=== PATIENT | female | born 1935 | race Caucasian/White ===

== ENCOUNTER 2017-01-17 19:01 | Inpatient (IN) ==
[~2017-01-17 19:01] MED LIST: ENOXAPARIN 40 MG/0.4 ML SYRINGE SUBCUT SCH
[2017-01-17] MEDS ORDERED: ALBUTEROL NEB SOLN 5 MG/ML 20 ML/BOTTLE CONT NEB STA (19:47)
[2017-01-17] MEDS ORDERED: FUROSEMIDE 40 MG/4 ML VIAL IV STA (19:47)
[2017-01-17] MEDS ORDERED: ONDANSETRON 4 MG/2 ML VIAL IV STA (19:47)
[2017-01-17] MEDS ORDERED: DIPH/TET/ACEL PERT BOOSTER VACCINE 0.5 ML VIAL IM ONE (19:47)
[2017-01-17] MEDS ORDERED: LIDOCAINE/EPINEPHR/TETRACAINE 3 ML SYRINGE TOP ONE (19:49)
[2017-01-17] MEDS ORDERED: LIDOCAINE/EPINEPHR/TETRACAINE 3 ML SYRINGE TOP STA (19:55)
[2017-01-17] MEDS ORDERED: DIPHTHERIA/TETANUS ADULT VACCINE 0.5 ML VIAL IM ONE (20:01)
[2017-01-17] MEDS ORDERED: SODIUM CHLORIDE 0.9% 100 ML IV ONE (20:01)
[2017-01-17] MEDS ORDERED: ceFAZolin 1,000 MG VIAL ONE (20:01)
[2017-01-17] MEDS ORDERED: FUROSEMIDE 20 MG/2 ML VIAL ONE (20:01)
[2017-01-17] MEDS ORDERED: FUROSEMIDE 40 MG/4 ML VIAL ONE (20:01)
[2017-01-17] MEDS ORDERED: ONDANSETRON 4 MG/2 ML VIAL ONE (20:01)
[2017-01-17] MEDS ORDERED: ALBUTEROL 2.5 MG/3 ML NEB RESP TX ONE (20:06)
--- NOTE | 2017-01-17 20:11 | Emergency Department Note ---
Silva Kat Gwan, am scribing for, and in the presence of, Quinn Savage MD 20 :03. Hussein Kat Charles R, MD, personally performed the services described in this documentation, ascribed by Harshil Ascencio in my presence, and it is both accurate and complete . Arrival - Arrival Chief Complaint: Fall ED Nursing Triage Note: pt brought via ems from [facility] at [facility] s /p fall. ems reports hematoma/laceration to back of head. no LOC. hx chf, dementia Mode of Arrival: Stretcher Limitations: Altered Mental Status Source: Family (Daughter ), Old Records Reviewed, RN Notes Reviewed Time Seen by Provider: 01/17/17 19:34 - History of Present Illness HPI Narrative: Patient is a 81 y/o female, with a hx of dementia and CHF, who presents to the ED via EMS with C-collar in place for further evaluation s/p fall today. Patient is a resident at [facility] in [facility] due to dementia. Patient is a poor historian and is accompanied by her daughter. Daughter stated that staff is unsure how or why the pt fell, but did state that the patient caused injury to the back of her head s/p fall. Daughter confirmed that pt fell 1 month ago and caused injury to her ribs and that her PCP recently started the pt on 3 new medications. Daughter continued to note that since the start of her new medications. Daughter denies that pt is currently on any blood thinners, that she had any periods of LOC or that she is currently being treated for her CHF. During exam, pt had active non productive cough and audible wheezing. Patient denies being in any pain while in ED. No other problems/complaints reported in ED. Onset (ago): hour(s) Consistency: constant Severity: moderate Allergies/Adverse Reactions: Allergies Allergy/AdvReac Type Severity Reaction Status Date / Time codeine Allergy Verified 01/03/17 15:35 sulfamethoxazole Allergy Verified 01/03/17 15:35 [From Bactrim] trimethoprim [From Bactrim] Allergy Verified 01/03/17 15:35 Home Medications: Home Medications Medication Instructions Recorded Confirmed Type Acidoph/L.bulg/Bif.b/S.thermop 1 each PO BID 01/03/17 01/17/17 History [Bacid Caplet] Cetirizine HCl [ZyrTEC Cap] 10 mg PO DAILY 01/03/17 01/17/17 History Diphenoxylate/Atrop 2.5-0.025 1 tablet PO BID PRN 01/03/17 01/17/17 History [Lomotil Tab] Galantamine HBr [Galantamine Tab] 4 mg PO BID 01/03/17 01/17/17 History HYDROcodone/ACETAMIN 5-325 [Delight 0.5 tablet PO Q4H PRN 01/03/17 01/17/17 History 5-325] Nebivolol [Bystolic] 5 mg PO DAILY 01/03/17 01/17/17 History Nortriptyline [Pamelor] 25 mg PO BEDTIME 01/03/17 01/17/17 History clonazePAM TAB [KlonoPIN] 0.5 mg PO BID 01/03/17 01/17/17 History clonazePAM [Klonopin] 0.5 mg PO DAILY PRN 01/03/17 01/17/17 History Albuterol/Ipratropium Neb [Duoneb] 3 ml RESP TX RT Q12H 01/17/17 01/17/17 History Divalproex [Depakote] 250 mg PO BID 01/17/17 01/17/17 History Furosemide [Furosemide] 10 mg PO QOTHER DAY 01/17/17 01/17/17 History Gabapentin Cap/Tab [Neurontin 300 mg PO TID 01/17/17 01/17/17 History Cap/Tab] Levofloxacin Tab [Levaquin Tab] 500 mg PO DAILY 01/17/17 01/17/17 History OLANZapine [Olanzapine] 5 mg PO BID 01/17/17 01/17/17 History Zaleplon [Sonata] 5 mg PO BEDTIME PRN 01/17/17 01/17/17 History guaiFENesin ER TAB [Mucinex] 600 mg PO BID 01/17/17 01/17/17 History Review of System - Review of System 12 point system: reviewed and no additional remarkable complaints except as stated - Review of System Head/Ears/Nose/Throat: Present: see HPI, other (cut to the back of her head per daughter ) Respiratory: Present: as per HPI, cough, wheezing Cardiovascular: Absent: chest pain, palpitations Musculoskeletal: Absent: arm pain, back pain, neck pain Medical,Surgical,& Family Hx - Medical History Cardio: History of: CHF, Hypertension, Pacemaker (pm/icd) Psychological: History of: Anxiety Disorders, Depression No history of: Behavior Problems, Violent Behavior, Psychiatric Problems Neurology: History of: Dementia HEENT: History of: Eye Problem (macular degeneration) Endocrine: History of: Dyslipidemia Rheumatology: History of;: Rheumatoid Arthritis Respiratory: History of: Asthma Genitourinary: History of: Recurring Urinary Tract Infections Gastrointestinal: History of: Diverticulitis/ Diverticulosis Musculoskeletal: History of: Back/Neck Problems, Musculoskeletal Problems Reproductive: History of: Reproductive Problems (enlarged left ovary) Other: History of: Anesthesia Reactions (hard to awaken) - Surgical History Cardiac Surgeries: Sugical HX of: Internal Defibrillator Reproductive Surgeries: Surgical HX of;: Gynecologic Surgery, Tubal Ligation Orthopedic Surgeries: Surgical HX of;: Implanted Devices (pm/icd) - Family History Family History: Reports;: Family Cancer (mother, breast ca, sister breast ca), Family Diabetes (brother, mother), Family Heart Disease, Family Stroke (father) - Social History Smoking Status: Former smoker Frequency of Alcohol Use: None Type of Drug Use: None Exam Vital Signs: Vital Signs Temperature 97.6 F 01/17/17 19:01 Pulse Rate 65 01/17/17 20:17 Respiratory Rate 25 H 01/17/17 20:17 Blood Pressure 156/56 01/17/17 19:01 O2 Sat by Pulse Oximetry 95 01/17/17 20:17 - General General appearance: alert, in no apparent distress, other (Patient is in no acute distress. ) - Head Head exam: Absent: atraumatic (3cm clean laceration note to the back of head. ) - Eye Eye exam: Present: normal appearance, PERRL, EOMI - ENT ENT exam: Present: normal oropharynx, mucous membranes moist, TM's normal bilaterally, normal external ear exam - Neck Neck exam: Present: other (Patient ayanna c-collar in place. ) - Chest Chest inspection: Present: symmetric chest wall rise. Absent: tenderness - Respiratory Respiratory exam: Present: rales (Bilaterally), rhonchi (Bilaterally), wheezes, other (Patient has decreased breathe sounds. ) - Cardiovascular Cardiovascular exam: Present: murmur (3/6 systolic injection murmur) - Abdominal Exam Abdominal exam: Present: soft, distention, other (Patient has decreased bowel sounds. ) - Extremities Exam Extremities exam: Present: other (Patient has +3 edema note to bilateral lower extremities. ) - Back Exam Back exam: Present: full ROM. Absent: tenderness - Neurological Exam Neurological exam: Present: alert, CN II-XII intact. Absent: motor sensory deficit - Skin Skin exam: Present: other (Patient has a 3cm clean laceration note the the back of the head. ) Course - Consultations Consultation #1: Hospitalist will admit patient Time: 21:58 Procedures - Laceration Laceration 1 Site: scalp Size (cm): 3 Description: clean Depth: simple, single layer Local Anesthetic: other anesthetic (LET solution ) Pre-repair: wound cleansed Skin layer closed with: other (shadia) Number of sutures: 7 (Wound was closed with 7 shadia ) Results - Labs CBC & BMP: 01/17/17 20:14 01/17/17 20:14 Lab Results: I have reviewed the patients labs Labs: Laboratory Tests 01/17/17 01/17/17 20:14 20:14 WBC 8.7 RBC 4.65 Hgb 13.2 Hct 40.7 Plt Count 319 Urine pH 6.0 Ur Specific Hubbell 1.004 Urine Urobilinogen < 2.0 H Urine Leukocytes Small H Urine RBC <1 Urine WBC 9 Urine WBC Clumps Occasional Ur Squamous Epith Cells Occasional Laboratory Tests 01/17/17 20:14 INR 1.0 PT Patient/Control Mix 10.7 - Diagnostic Findings Procedure: Chest x-ray: report reviewed by me (No acute cardiopulmonary findings. ), CT: report reviewed by me (Head CT: No acute intracranial abnormality. Cervical Spint CT: Multilevel spondylosis. No evidence of traumatic injury. ) Disposition Clinical Impression: Dementia, CHF (congestive heart failure), Hypertension, Major neurocognitive disorder, due to Alzheimer's disease, with behavioral disturbance, mild, Scalp laceration, Fall, Acute dyspnea, Extremity edema, Bronchitis, UTI (urinary tract infection) Case discussed with: patient, patient's family Disposition: Still a Patient Condition: Stable Time of Disposition: 21:58
--- NOTE | 2017-01-17 20:15 | EKG Report ---
Stationary ECG Study [facility] ER Test Date: 01/17/2017 8:13:59 PM Pat Name: KATARZYNA GODWIN Department: Room: Gender: F Fire Technician: SR : 1935 Requested by: Quinn Sorto Order Number: [id number] Reading MD: NATACHA COOMBS Intervals [place] Rate: 66 P: 999 TN: 0 QRS: -1 QRSD: 159 T: 64 QT: 442 QTc: 455 Interpretive Statements SINUS RHYTHM WITH 2ND DEGREE AV BLOCK, MOBITZ TYPE I WITH OCCASIONAL VENTRICULAR PREMATURE COMPLEXES LEFT BUNDLE BRANCH BLOCK Electronically Signed On 01-21-17 06:47:18 CDT by NATACHA COOMBS [email or web address]
--- NOTE | 2017-01-17 20:16 | XRay Report ---
Portable chest Exam date: 01/17/2017 7:47 PM Indication: Shortness of breath, cough Comparison: January 10, 2017 Findings: Cardiomediastinal contours are stable with no change in defibrillator placement. Lungs are clear bilaterally. No acute osseous abnormalities. Visualized upper abdomen demonstrates no acute pathology. Impression: No acute cardiopulmonary findings PROCEDURE INTERPRETED AT [facility] DEPARTMENT OF RADIOLOGY Final Report Signed by: Domenico Salvador
--- NOTE | 2017-01-17 20:19 | CT Report ---
Exam: CT head without intravenous contrast Clinical History: 81 years Female fall with headache Technique: Axial computed tomography images of the head/brain without intravenous contrast Comparison: No relevant comparisons Findings: Brain: Generalized atrophy with mild microangiopathic small vessel ischemic changes and remote left basal ganglia lacunar infarction. Salvador-white matter distinction maintained. No mass effect. No intra or extra-axial hemorrhage. Ventricles: Unremarkable. No ventriculomegaly. Bones/joints: Calvarium is intact Soft tissues: Unremarkable Sinuses: No active paranasal sinus process Mastoid air cells: Unremarkable visualized. Impression: 1. No acute intracranial abnormality PROCEDURE INTERPRETED AT [facility] DEPARTMENT OF RADIOLOGY Final Report Signed by: Domenico Salvador
--- NOTE | 2017-01-17 20:25 | CT Report ---
Exam: CT cervical spine without IV contrast Clinical History: 81 years,Female,fall with neck pain Technique: Axial computed tomography images of the cervical spine without intravenous contrast. Comparison: No relevant prior studies available. Findings: Vertebra: Degenerative retrolisthesis of C5. Slight straightening of the cervical lordosis. No fracture. Disc/spinal Canal/neural foramina: Disc space loss at C4-C7 with endplate spurring and mild multilevel facet arthrosis.. Soft tissues: Unremarkable Thyroid: Symmetric in size and attenuation Lung apices: Well aerated Impression: 1. Multilevel spondylosis. No evidence of traumatic injury PROCEDURE INTERPRETED AT [facility] DEPARTMENT OF RADIOLOGY Final Report Signed by: Domenico Salvador
[2017-01-17 20:55] LABS: Apearance,Urine CLEAR (Clear); Bilirubin,Urine Negative (Negative); Blood, Urine Negative (Negative); Glucose,Urine (UA) Negative (Negative); Ketones,Urine Negative (Negative); Nitrite,Urine Negative (Negative); Protein,Urine Negative; RBC,Urine <1 /HPF (0-4); Squamous Epithelial Cell,Urine Occasional /HPF (0-10); Urine Color Yellow (Yellow); Urine Specific Gravity 1.004 (1.001-1.035); Urine Urobilinogen < 2.0 EU/DL (0.2-1.0); WBC,Urine 9 /HPF (0-6)
[2017-01-17 21:02] LABS: Basophils % 0.5 % (0.0-0.8); Eosinophils # 0.4 10*3/uL (0.0-0.87); Eosinophils % 4.1 % (0.00-10.9); Hematocrit 40.7 VOL% (35.7-47.0); Hemoglobin 13.2 GM/DL (12.0-16.0); Immature Granulocytes % 0.5 %; Immature Granulocytes Absolute 0.04 #; Lymphocytes # 1.9 10*3/uL (1.4-4.0); Lymphocytes % 21.9 % (21.3-54.2); Mean Corpuscular HGB Conc 32.4 GM/DL (32-36); Mean Corpuscular Hemoglobin 28 PG (27-34); Mean Corpuscular Volume 87.5 FL (87-102); Mean Platelet Volume 10.7 FL (9.6-12.0); Monocytes # 0.8 10*3/uL (0.11-0.8); Monocytes % 8.8 % (1.7-12.7); Neutrophils # 5.6 10*3/uL (1.4-7.4); Neutrophils % 64.2 % (38.7-73.9); Platelet Count 319 T/CUMM (130-400); Red Blood Count 4.65 MC/CUMM (3.8-5.5); Red Cell Distribution Width 12.5 % (9.3-17.3); White Blood Count 8.7 T/CUMM (4-12)
[2017-01-17 21:11] LABS: PT Patient Result 10.7 SECS
[2017-01-17 21:32] LABS: Alanine Aminotransferase 16 U/L (13-56); Albumin 3.4 G/DL (3.4-5.0); Alkaline Phosphatase 99 U/L (45-117); Aspartate Amino Transferase 14 U/L (0-37); Bilirubin,Total < 0.39 MG/DL (0.2-1.0); Blood Urea Nitrogen 13 MG/DL (7-18); Calcium 9.1 MG/DL (8.5-10.1); Glucose 119 MG/DL (74-106); Osmolality,Calculated 281.3 MOS/KG (273-304); Potassium 3.7 MMOL/L (3.5-5.1); Sodium 141 MMOL/L (136-145); Total Protein 6.6 G/DL (6.4-8.3); Troponin I Only < 0.015 NG/ML (0.00-0.045)
--- NOTE | 2017-01-17 22:38 | Hospitalist History & Physical ---
Assessment and Plan (1) Major neurocognitive disorder Status: Acute Current Visit: No (2) Dementia Status: Acute Current Visit: Yes (3) Depression, major, recurrent, severe with psychosis Status: Acute Current Visit: No (4) CHF (congestive heart failure) Status: Acute Current Visit: Yes (5) Hypertension Status: Acute Current Visit: Yes (6) Status post placement of other cardiac pacemaker Status: Acute Current Visit: No (7) Major neurocognitive disorder, due to Alzheimer's disease, with behavioral disturbance, mild Status: Acute Current Visit: Yes (8) Scalp laceration Status: Acute Current Visit: Yes (9) Fall Status: Acute Current Visit: Yes (10) Acute dyspnea Status: Acute Current Visit: Yes (11) Extremity edema Status: Acute Current Visit: Yes (12) Bronchitis Status: Acute Assessment and plan: Our plan for this patient will be admitting her to our service. We will continue with all home medications which include antibiotics for her recent pneumonia. I do feel she has a touch of bronchitis still holding the alone. We will schedule her breathing treatments. Give her low-dose steroids. I will continue with the diuresis her BNP is not elevated. Her chest x-ray appears clear. She does have some significant edema bilaterally. When she is been observed and symptomatically improved we will return her back to the [facility]. Current Visit: Yes History of Present Illness Chief complaint: Shortness of breath, status post fall History of present illness: Ms. Laura is a 81 year old female with past medical history significant for dementia, congestive heart failure, defibrillator, asthma and recent pneumonia and urinary tract infection who was in her normal state of health tilt night. Apparently patient is staying at [facility] at the [facility]. She fail were unsure of the situations. It caused some injury to the back of her head she had a laceration that was stapled. She had a fall a month ago with pain to her ribs. Patient was brought to our hospital for further evaluation. Patient had audible wheezing and a nonproductive cough. She had increase in her lower extremity edema. Her BNP is normal and her chest x-ray is normal. Because of her dyspnea I was consulted for admission. Home Medications Medication Instructions Recorded Confirmed Type Acidoph/L.bulg/Bif.b/S.thermop 1 each PO BID 01/03/17 01/17/17 History [Bacid Caplet] Cetirizine HCl [ZyrTEC Cap] 10 mg PO DAILY 01/03/17 01/17/17 History Diphenoxylate/Atrop 2.5-0.025 1 tablet PO BID PRN 01/03/17 01/17/17 History [Lomotil Tab] Galantamine HBr [Galantamine Tab] 4 mg PO BID 01/03/17 01/17/17 History HYDROcodone/ACETAMIN 5-325 [Hendricks 0.5 tablet PO Q4H PRN 01/03/17 01/17/17 History 5-325] Nebivolol [Bystolic] 5 mg PO DAILY 01/03/17 01/17/17 History Nortriptyline [Pamelor] 25 mg PO BEDTIME 01/03/17 01/17/17 History clonazePAM TAB [KlonoPIN] 0.5 mg PO BID 01/03/17 01/17/17 History clonazePAM [Klonopin] 0.5 mg PO DAILY PRN 01/03/17 01/17/17 History Albuterol/Ipratropium Neb [Duoneb] 3 ml RESP TX RT Q12H 01/17/17 01/17/17 History Divalproex [Depakote] 250 mg PO BID 01/17/17 01/17/17 History Furosemide [Furosemide] 10 mg PO QOTHER DAY 01/17/17 01/17/17 History Gabapentin Cap/Tab [Neurontin 300 mg PO TID 01/17/17 01/17/17 History Cap/Tab] Levofloxacin Tab [Levaquin Tab] 500 mg PO DAILY 01/17/17 01/17/17 History OLANZapine [Olanzapine] 5 mg PO BID 01/17/17 01/17/17 History Zaleplon [Sonata] 5 mg PO BEDTIME PRN 01/17/17 01/17/17 History guaiFENesin ER TAB [Mucinex] 600 mg PO BID 01/17/17 01/17/17 History Allergies Allergy/AdvReac Type Severity Reaction Status Date / Time codeine Allergy Verified 01/03/17 15:35 sulfamethoxazole Allergy Verified 01/03/17 15:35 [From Bactrim] trimethoprim [From Bactrim] Allergy Verified 01/03/17 15:35 Medical,Surgical,& Family Hx - Medical History Cardio: History of: CHF, Hypertension, Pacemaker (pm/icd) Psychological: History of: Anxiety Disorders, Depression No history of: Behavior Problems, Violent Behavior, Psychiatric Problems Neurology: History of: Dementia HEENT: History of: Eye Problem (macular degeneration) Endocrine: History of: Dyslipidemia Rheumatology: History of;: Rheumatoid Arthritis Respiratory: History of: Asthma Genitourinary: History of: Recurring Urinary Tract Infections Gastrointestinal: History of: Diverticulitis/ Diverticulosis Musculoskeletal: History of: Back/Neck Problems, Musculoskeletal Problems Reproductive: History of: Reproductive Problems (enlarged left ovary) Other: History of: Anesthesia Reactions (hard to awaken) - Surgical History Cardiac Surgeries: Sugical HX of: Internal Defibrillator Reproductive Surgeries: Surgical HX of;: Gynecologic Surgery, Tubal Ligation Orthopedic Surgeries: Surgical HX of;: Implanted Devices (pm/icd) - Family History Family History: Reports;: Family Cancer (mother, breast ca, sister breast ca), Family Diabetes (brother, mother), Family Heart Disease, Family Stroke (father) - Social History Smoking Status: Former smoker Frequency of Alcohol Use: None Type of Drug Use: None ROS unobtainable: due to mental status Exam - Constitutional Vitals: Period Temp Pulse Resp BP Sys/Hines Pulse Ox Last 24 Hr 97.6 F-97.6 F 65-85 20-25 156-156/56-56 95-95 General appearance: normal weight - Head Head exam: Present: normal inspection - Eye Pupils: Present: constricted - ENT ENT exam: Present: normal exam - Neck Neck exam: Present: normal inspection - Respiratory Respiratory exam: Present: wheezes (Coarse breath sounds), other - Cardiovascular Cardiovascular exam: Present: systolic murmur - GI/Abdominal GI/Abdominal exam: Present: normal bowel sounds - Back Exam Back exam: Present: normal inspection - Neurological Exam Neurological exam: Present: altered - Skin Skin exam: Present: other (Patient has a wound on her right calf) Results - Labs CBC & BMP: 01/17/17 20:14 01/17/17 20:14
[2017-01-17] MEDS ORDERED: ACETAMINOPHEN 325 MG TABLET PO PRN (22:43)
[2017-01-17] MEDS ORDERED: ONDANSETRON 4 MG/2 ML VIAL IV PRN (22:43)
[2017-01-17] MEDS ORDERED: guaiFENesin/DM ER 600-30 MG TABLET PO PRN (22:43)
[2017-01-17] MEDS ORDERED: ALBUTEROL 2.5 MG/3 ML NEB RESP TX PRN (22:43)
[2017-01-17] MEDS ORDERED: clonazePAM 0.5 MG TABLET PO PRN (22:48)
[2017-01-17] MEDS ORDERED: DIPHENOXYLATE/ATROPINE 2.5-0.025 MG TABLET PO PRN (22:48)
[2017-01-17] MEDS ORDERED: ZALEPLON 5 MG CAPSULE PO PRN ×2 (22:48→23:28)
[2017-01-18] MEDS ORDERED: ACETAMINOPHEN 325 MG TABLET PO PRN (01:13)
[2017-01-18] MEDS ORDERED: ZALEPLON 5 MG CAPSULE PO PRN (01:17)
[2017-01-18] MEDS: ALBUTEROL/IPRATROPIUM 3 ML NEB RESP TX SCH ×4 (01:40→19:35)
[2017-01-18] MEDS ORDERED: methylPREDNISolone 4 MG TABLET PO SCH (02:03)
[2017-01-18] MEDS ORDERED: ALBUTEROL/IPRATROPIUM 3 ML NEB RESP TX SCH (07:00)
[2017-01-18] MEDS ORDERED: FUROSEMIDE 20 MG/2 ML VIAL IV SCH ×2 (08:00)
[2017-01-18] MEDS ORDERED: FUROSEMIDE 40 MG/4 ML VIAL IV ONE (08:10)
[2017-01-18] MEDS: PANTOPRAZOLE 40 MG TABLET PO SCH (08:44)
[2017-01-18] MEDS: ENOXAPARIN 40 MG/0.4 ML SYRINGE SUBCUT SCH (08:44)
[2017-01-18] MEDS: CETIRIZINE 10 MG TABLET PO SCH (08:44)
[2017-01-18] MEDS: FUROSEMIDE 40 MG TABLET PO SCH (08:44)
[2017-01-18] MEDS: clonazePAM 0.5 MG TABLET PO SCH ×2 (08:44→20:30)
[2017-01-18] MEDS ORDERED: LEVOFLOXACIN 500 MG TABLET PO SCH ×2 (09:00)
[2017-01-18] MEDS ORDERED: GABAPENTIN 300 MG CAPSULE PO SCH ×2 (09:00)
[2017-01-18] MEDS ORDERED: clonazePAM 0.5 MG TABLET PO SCH (09:00)
[2017-01-18] MEDS ORDERED: CETIRIZINE 10 MG TABLET PO SCH (09:00)
[2017-01-18] MEDS ORDERED: DIVALPROEX 250 MG TABLET PO SCH ×2 (09:00)
[2017-01-18] MEDS ORDERED: LACTOBACILLUS ACIDOPHILUS/BULGARICUS CAPLET PO SCH ×2 (09:00)
[2017-01-18] MEDS ORDERED: GALANTAMINE 4 MG TABLET PO SCH ×2 (09:00)
[2017-01-18] MEDS ORDERED: OLANZapine 5 MG TABLET PO SCH ×2 (09:00)
[2017-01-18] MEDS: NEBIVOLOL 5 MG TABLET PO SCH (09:20)
[2017-01-18] MEDS ORDERED: SKIN HEALING OINT (AQUAPHOR) 50 GM TUBE TOP PRN (10:25)
--- NOTE | 2017-01-18 11:32 | Hospitalist Progress Note ---
Assessment and Plan (1) Major neurocognitive disorder Status: Acute Assessment and plan: 1)fall- scalp lac addressed in ER. CT head and neck ok. 2)dementia with psychosis and wandering- seeking placement at [facility] or swing bed. 3)bronchitis- CXR clear, complete antibiotics for pneumonia. on steroids at low doses and nebs. 4)extremity edema- lasix po today. reassess tomorrow. Current Visit: No (2) Dementia Status: Acute Current Visit: Yes (3) Depression, major, recurrent, severe with psychosis Status: Acute Current Visit: No (4) Scalp laceration Status: Acute Current Visit: Yes (5) Fall Status: Acute Current Visit: Yes (6) Extremity edema Status: Acute Current Visit: Yes (7) Bronchitis Status: Acute Current Visit: Yes Hospitalist: Subjective Interval history: Mrs Laura is feeling ok this morning. Her admission here yesterday takes the place of the planned discharge from [facility] to assisted living that was to happen today. Her daughter feels now that she needs snf/swing bed placement somewhere closer to their home in [place]. Polly will discuss with her where that should be. No other complaints or concerns this morning. Exam - Constitutional Vitals: Period Temp Pulse Resp BP Sys/Hines Pulse Ox Last 24 Hr 97.3 F-97.6 F 62-112 17-25 110-156/56-87 92-99 General appearance: no acute distress, over weight - Head Head exam: Present: normocephalic, atraumatic - Eye Eye exam: Present: EOMI. Absent: scleral icterus - Respiratory Respiratory exam: Present: clear to auscultation bilaterally - Cardiovascular Cardiovascular exam: Present: regular rate and rhythm - GI/Abdominal GI/Abdominal exam: Present: normal bowel sounds, soft. Absent: tenderness - Extremities Exam Extremities exam: Present: edema - Neurological Exam Neurological exam: Present: alert, CN II-XII intact (speech fluid and clear, not oriented to events around her such as how she wound up in the hospital, etc. ). Absent: oriented X3 Results - Labs CBC & BMP: 01/17/17 20:14 01/17/17 20:14 Lab Results: I have reviewed the past 24 hour labs
[2017-01-18] MEDS ORDERED: LORazepam 2 MG/1 ML VIAL IV ONE (15:54)
[2017-01-18] MEDS ORDERED: LORazepam 2 MG/1 ML VIAL ONE (15:56)
[2017-01-18] MEDS: LORazepam 2 MG/1 ML VIAL IV PRN (20:28)
[2017-01-18] MEDS: OLANZapine 5 MG TABLET PO SCH (20:30)
[2017-01-18] MEDS ORDERED: NORTRIPTYLINE 25 MG CAPSULE PO SCH ×2 (21:00)
[2017-01-19] MEDS: ALBUTEROL/IPRATROPIUM 3 ML NEB RESP TX SCH ×4 (00:07→19:08)
[2017-01-19] MEDS: ENOXAPARIN 40 MG/0.4 ML SYRINGE SUBCUT SCH (08:09)
[2017-01-19] MEDS: clonazePAM 0.5 MG TABLET PO SCH ×2 (08:11→21:37)
[2017-01-19] MEDS: methylPREDNISolone 4 MG TABLET PO SCH (08:11)
[2017-01-19] MEDS: OLANZapine 5 MG TABLET PO SCH ×2 (08:11→21:36)
[2017-01-19] MEDS: PANTOPRAZOLE 40 MG TABLET PO SCH (08:11)
[2017-01-19] MEDS: NEBIVOLOL 5 MG TABLET PO SCH (08:11)
[2017-01-19] MEDS: CETIRIZINE 10 MG TABLET PO SCH (08:11)
[2017-01-19] MEDS: FUROSEMIDE 40 MG TABLET PO SCH (08:11)
[2017-01-19] MEDS: GALANTAMINE 4 MG TABLET PO SCH ×2 (10:42→21:37)
[2017-01-19] MEDS: DIVALPROEX 250 MG TABLET PO SCH ×2 (10:42→21:36)
--- NOTE | 2017-01-19 11:01 | Discharge Summary ---
Diagnosis - Discharge Diagnosis (1) Major neurocognitive disorder Status: Acute (2) Dementia Status: Acute (3) Depression, major, recurrent, severe with psychosis Status: Acute (4) Scalp laceration Status: Acute (5) Fall Status: Acute (6) Extremity edema Status: Acute (7) Bronchitis Status: Acute Specialty Discharge - Follow Up or Referrals Follow up with: Your, PCP [Other] (1 week) Murray Bolton MD [Physician] - Discharge Plan - Discharge Data Disposition: Disch/Xfer to Snf Condition at Discharge: Stable Discharge Diet: regular diet Activity: resume usual activities as tolerated, as per physical therapy - Discharge Medications New Furosemide Tab [Lasix Tab] 40 mg PO DAILY tablet Skin Healing Oint (Aquaphor) [Aquaphor] 1 applic TOP PRN PRN applic PRN Reason: Dry Skin methylPREDNISolone TAB [Medrol] 8 mg PO .DOSEPAK ENTER TAPER tablet Continue Zaleplon [Sonata] 5 mg PO BEDTIME PRN PRN Reason: Insomnia guaiFENesin ER TAB [Mucinex] 600 mg PO BID Gabapentin Cap/Tab [Neurontin Cap/Tab] 300 mg PO TID Divalproex [Depakote] 250 mg PO BID Albuterol/Ipratropium Neb [Duoneb] 3 ml RESP TX RT Q12H Levofloxacin Tab [Levaquin Tab] 500 mg PO DAILY 5 Days OLANZapine [Olanzapine] 5 mg PO BID HYDROcodone/ACETAMIN 5-325 [Lilly 5-325] 0.5 tablet PO Q4H PRN PRN Reason: Pain Acidoph/L.bulg/Bif.b/S.thermop [Bacid Caplet] 1 each PO BID Diphenoxylate/Atrop 2.5-0.025 [Lomotil Tab] 1 tablet PO BID PRN PRN Reason: Diarrhea clonazePAM [Klonopin] 0.5 mg PO DAILY PRN PRN Reason: Agitation Nortriptyline [Pamelor] 25 mg PO BEDTIME Cetirizine HCl [ZyrTEC Cap] 10 mg PO DAILY Galantamine HBr [Galantamine Tab] 4 mg PO BID Nebivolol [Bystolic] 5 mg PO DAILY Discontinued Furosemide [Furosemide] 10 mg PO QOTHER DAY clonazePAM TAB [KlonoPIN] 0.5 mg PO BID - Follow Up or Referral Follow Up: Your, PCP [Other] (1 week) Murray Bolton MD [Physician] - - Forms/Instructions Exam - Constitutional Vitals: Period Temp Pulse Resp BP Sys/Hines Pulse Ox Last 24 Hr 7.5 F-98.5 F 52-108 16-20 103-145/42-61 91-98 Discharge Results Procedures and tests throughout hospitalization: Pending Orders 01/17/17 Urine Culture Routine Labs on day of discharge: Preliminary micro results at discharge 01/17/17 Unknown Urine Culture - Preliminary Urine,Catheterized Gram Positive Cocci DS: Provider Date of admission: 01/17/17 22:34 Primary care physician: . No PCP Attending physician on admission: Fracisco Ramos MD Consults: 01/17/17 22:45 Consult to Wound Care - [place] [CONS] Routine Reason for Wound Care: Wound Care Management 01/18/17 10:59 Consult to Case Mgmt/Social Srvs [CONS] Routine Reason for Case Mgmt/Social Srvs: Swingbed/SNF/Residential 01/18/17 11:23 Consult to Physical Therapy [CONS] Routine Reason for Physical Therapy: Evaluate and Treat Discharging clinician: Aleena Chau MD
--- NOTE | 2017-01-19 13:15 | Case Mgmt Physician Query Form ---
TB Signs and Symptoms Screening ([place]) INSTRUCTIONS: To be completed annually on residents/staff with a significant Tuberculin Skin Test (TST) upon admission/hire or a prior significant TST. To be completed on all staff at hire. Please respond to each listed symptom with an (X) in either the "YES" or "NO" box. Do you currently have any of the following symptoms: YES NO ( ) (x ) A cough If yes, is it: ( ) Productive ( ) Non- productive ( ) ( x) Hemoptysis (spitting up blood) ( ) ( x) Chest pains ( ) ( x) Weight Loss ( ) (x ) Fever ( ) (x ) Night Sweats ( ) ( x) Weakness ( ) (x ) Loss of Appetite ( ) (x ) Difficulty Breathing If you answered YES" to any of the above questions, how long have symptoms been present? Comments: If you have any questions, please contact me . Thank you, Polly ABRAHAM Email: [email or web address] [facility]
[2017-01-19] MEDS: LORazepam 2 MG/1 ML VIAL IV PRN (14:08)
[2017-01-19] MEDS: GABAPENTIN 300 MG CAPSULE PO SCH ×2 (14:08→21:37)
--- NOTE | 2017-01-19 14:44 | XRay Report ---
Portable chest Exam date: 01/19/2017 208 PM Indication: Shortness of breath, cough Comparison: January 17, 2017 Findings: Cardiomediastinal contours are stable with no change in defibrillator placement. Lungs are clear bilaterally. No acute osseous abnormalities. Visualized upper abdomen demonstrates no acute pathology. Impression: No acute cardiopulmonary findings PROCEDURE INTERPRETED AT [facility] DEPARTMENT OF RADIOLOGY Final Report Signed by: Becca Salvador MD
[2017-01-19] MEDS ORDERED: NORTRIPTYLINE 25 MG CAPSULE PO SCH (21:00)
[2017-01-20] MEDS: ALBUTEROL/IPRATROPIUM 3 ML NEB RESP TX SCH ×2 (00:13→07:18)
[2017-01-20] MEDS: DIVALPROEX 250 MG TABLET PO SCH (08:14)
[2017-01-20] MEDS: methylPREDNISolone 4 MG TABLET PO SCH (08:14)
[2017-01-20] MEDS: CETIRIZINE 10 MG TABLET PO SCH (08:14)
[2017-01-20] MEDS: OLANZapine 5 MG TABLET PO SCH (08:14)
[2017-01-20] MEDS: FUROSEMIDE 40 MG TABLET PO SCH (08:14)
[2017-01-20] MEDS: clonazePAM 0.5 MG TABLET PO SCH (08:14)
[2017-01-20] MEDS: GALANTAMINE 4 MG TABLET PO SCH (08:15)
[2017-01-20] MEDS: NEBIVOLOL 5 MG TABLET PO SCH (08:15)
[2017-01-20] MEDS: GABAPENTIN 300 MG CAPSULE PO SCH (08:15)
[2017-01-20] MEDS: PANTOPRAZOLE 40 MG TABLET PO SCH (08:15)
[2017-01-20] MEDS: ENOXAPARIN 40 MG/0.4 ML SYRINGE SUBCUT SCH (08:15)
[2017-01-20 08:43] VITALS: BP 141/73
[2017-01-21 19:31] LABS: TB Ag minue Nil Result 0 IU/mL
== END 2017-01-20 10:30 | disposition home or self-care (01) | DRG 202 ==
LOC: EDBD → EDUNIT# → N.ED 19:01 → N.EDINP 22:34 → SUATTDRO 22:34 → N.5E 22:47 → UNDODISIN 23:28
PROVIDERS: ADMIT Internal Medicine; ATTEND Internal Medicine